=== PATIENT | female | born 1930 | race Caucasian/White ===

== ENCOUNTER 2016-09-08 14:27 | Inpatient (IN) | payer MEDICARE ==
--- NOTE | ~2016-09-08 | CN ---
Consultation Report [facility] [address] [place]. [address] NAME: NAHID LOWE : 32 STATUS : ADM Christina PAT#: [id number] AGE: 86 ADM/REG DATE : 09/08/16 MR#: [id number] REPORT SERV DATE: 09/10/16 DICTATED BY: AMRIT STODDARD IV DATE: 09/10/16 REPORT STATUS : Draft TRANSCRIBED BY: SHARONA DATE: 09/10/16 PULMONARY CONSULTATION. DATE OF CONSULTATION: 09/10/2016 REASON FOR REQUEST: COPD exacerbation and bronchitis. HISTORY OF PRESENT ILLNESS: History was obtained from the patient and the records. Ms. Lowe is an 86-year-old female with a history of coronary artery disease, hypertension, elevated cholesterol, peripheral arterial disease, previous tobacco use, who is admitted with cough, weakness, dizziness, atrial fibrillation with bradycardia. The patient was in her normal state of health until about a week ago when she developed dizziness and then a cough that was predominantly dry, though occasionally productive of scant white phlegm. She denies any fevers, chills, sweats, hemoptysis, or wheezing. She was not previously on supplemental oxygen on bronchodilator medications. She took an over- the-counter cough medication and noted progressive weakness with decreased appetite over the ensuing days. She finally sought evaluation in a walk-in clinic, where she was given a diagnosis of bronchitis and given Levaquin. She immediately developed diarrhea with progressive weakness for which she was brought to [facility] and admitted. She was found to be bradycardic in atrial fibrillation, which has subsequently converted. She feels better with less cough and shortness of breath, still requiring a significant amount of oxygen. The patient reportedly was told by her previous that she snored. She is unaware of apneic episodes. She allows herself eight to nine hours of sleep every evening. Sleep is initially restorative, however, she complains of significant sedentary hypersomnolence. PULMONARY HISTORY: Remarkable for no history of childhood asthma or known adult obstructive lung disease. She did have pneumonia in the past. She smoked for 55 years a half a pack a day. She quit in 2006. 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 She refuses seasonal influenza vaccinations though, has received the Pneumovax. She has never received the Prevnar-13 vaccination. PAST MEDICAL HISTORY: 1. Coronary artery disease. 2. Hypertension. 3. Elevated cholesterol. 4. Peripheral arterial disease. 5. Previous tobacco use. SURGERIES: 1. Appendectomy. 2. Cholecystectomy. 3. Coronary artery bypass grafting. 4. Nonoperative healing of a left humeral fracture. Consultation Report [facility] [address] [place]. [address] NAME: NAHID LOWE : 32 STATUS : ADM Christina PAT#: [id number] AGE: 86 ADM/REG DATE : 09/08/16 MR#: [id number] REPORT SERV DATE: 09/10/16 DICTATED BY: AMRIT STODDARD IV DATE: 09/10/16 REPORT STATUS : Draft TRANSCRIBED BY: SHARONA DATE: 09/10/16 ALLERGIES: SHE REPORTEDLY HAS SWELLING FROM PENICILLIN AND IS INTOLERANT OF CODEINE. CURRENT MEDICATIONS: This patient is on aspirin 81 mg daily, heparin drip, Betapace 40 mg twice a day, Caltrate 60 mg at bedtime, Carafate 1 g before breakfast and supper, Cozaar 50 mg daily, hydrochlorothiazide 6.25 mg daily, Dulera two puffs twice a day, DuoNebs every four hours while awake, Imdur 30 mg daily, Levaquin 750 mg daily, digoxin 0.125 mg daily, magnesium oxide 800 mg q.8 hours, Norvasc 10 mg daily, level 2 insulin sliding scale, potassium 20 mEq daily, Pravachol 40 mg at bedtime, Protonix 40 mg daily, Solu-Medrol 60 mg three times a day, and vitamin D daily. SOCIAL HISTORY: Remarkable for the previous tobacco use as above. There is no alcohol or illicit drug use. She is , has one adopted child. FAMILY HISTORY: Remarkable for all of her siblings with coronary artery disease. She is unaware of other family members since she is adopted. REVIEW OF SYSTEMS: 12 systems reviewed, pertinent positives as noted above. PHYSICAL EXAMINATION: GENERAL: This is a very pleasant, obese, elderly female, in no current distress. She did not cough throughout the interview and exam. VITAL SIGNS: Temperature is 98.2, pulse is 64, respiratory rate is 22, saturation 94% on 3 L via nasal cannula, blood pressure 132/57. HEENT: Patient is normocephalic, atraumatic. Extraocular movements are intact. Pupils react to light. Sclerae and conjunctivae normal. She has a nasal cannula in place. She has a Mallampati III airway with narrowing of the posterior pharyngeal space. NECK: She has a right carotid endarterectomy scar. There is no palpable lymphadenopathy or thyromegaly. CHEST: The patient has symmetrically decreased breath sounds with a prolonged expiratory phase. There are some dry bibasilar inspiratory crackles. There are scattered expiratory rhonchi. No true wheezes are noted. She has a sternotomy scar. CARDIOVASCULAR: Jugular venous pulsations difficult to elicit. She has a left carotid bruit. There is a distant regular S1, S2 with no clear murmur or S3. Peripheral pulses are diminished. ABDOMEN: Surgical scars noted. Obese, soft, nontender. There are hypoactive bowel sounds. There is no palpable hepatosplenomegaly or masses. EXTREMITIES: Demonstrate no cyanosis, clubbing, edema, or palpable cords. NEUROLOGIC: The patient is able to follow commands. Strength is 5-/5 and sensation intact to light touch. LABORATORY DATA: Chest x-ray demonstrates rotated film. There is no acute pulmonary disease. There is postsurgical changes consistent of the coronary bypass grafting. Chemistry: Sodium is 133, potassium 3.5, chloride 90, bicarb 31, BUN 26, creatinine 0.99, Consultation Report [address] [place]. [address] NAME: NAHID LOWE : 32 STATUS : ADM Christina PAT#: [id number] AGE: 86 ADM/REG DATE : 09/08/16 MR#: [id number] REPORT SERV DATE: 09/10/16 DICTATED BY: AMRIT STODDARD IV DATE: 09/10/16 REPORT STATUS : Draft TRANSCRIBED BY: MODL DATE: 09/10/16 glucose of 169, magnesium is 1.6, and phosphorus is 4. CBC: Hemoglobin 12.9, hematocrit 37.5, platelet count was 237,000, white blood cells 9.2. The PTT is 99.4. ASSESSMENT AND PLAN: 1. Respiratory. The patient probably has a component of underlying chronic obstructive pulmonary disease with this representing an exacerbation. The patient has clinically improved on the current medications. I will restart the Spiriva. I will continue the Dulera. DuoNebs will be changed to albuterol four times a day and q.2 hours as needed. Change steroids to prednisone tomorrow. The patient has clinical obstructive sleep apnea, which is important based with her cardiovascular history. Overnight oximetry will be obtained prior to the patient going home. Oxygen will be titrated to maintain saturations in the 90% to 94% range. 2. Renal. We will replace the patient's magnesium and potassium. Check tomorrow. 3. Hematologic. We will continue heparin drip per Cardiology. 4. Infectious disease. The patient will complete the Levaquin, did have five doses; Prevnar-13 at the time of discharge. 5. Endocrinologic. We will continue the insulin coverage while on the steroids. Thank you for consulting us. We will follow up the patient with you. NM/MODL rit Stoddard IV, M.D. / [id number] CC: Zain Griffith Jr, MD Stanley Ireland, M.D.
--- NOTE | ~2016-09-08 | HP ---
History And Physical [id number] [place]. [address] NAME: NAHID LOWE : 32 STATUS : ADM Christina PAT#: [id number] AGE: 86 ADM/REG DATE : 09/08/16 MR#: [id number] REPORT SERV DATE: 09/09/16 DICTATED BY: CRISTIN ALBERTO DATE: 09/08/16 REPORT STATUS : Draft TRANSCRIBED BY: MODL DATE: 09/08/16 DATE OF ADMISSION: 09/08/2016 REASON FOR ADMISSION: Shortness of breath and dizziness. HISTORY OF PRESENT ILLNESS: An 86-year-old female with known history of CAD with 4 vessel bypass done by Dr. Dias several years ago; history of PAD with a right carotid endarterectomy, hypertension; hyperlipidemia; history of smoking, at least 45-pack years, no longer smokes though; hypothyroidism; clinical COPD, on no inhalers apparently; appendectomy; cholecystectomy; some humeral fracture that did not require operative management in the past, just a sling. Comes in with about a week episode of progressive dizziness, nonproductive cough, and mild shortness of breath. Went to walk-in clinic, apparently got Levaquin. No fevers, no chills. Positive nausea. No vomiting. Positive diarrhea, only one episode. No chest pain. No chest pressure. Positive shortness of breath. PAST MEDICAL HISTORY: See above. PAST SURGIAL HISTORY: See above. ALLERGIES: SUPPOSEDLY PENICILLIN, SWELLING. CODEINE MAKES SICK TO "STOMACH," PROBABLY DRUG INTOLERANCE. FAMILY HISTORY: Did have a brother who is biological with early CAD. Otherwise, she was adopted. HOME MEDICATIONS: See MAR, continue what is relevant. SOCIAL HISTORY: Forty-five pack year history of smoking. No alcohol. No drug use. No current smoking. REVIEW OF SYSTEMS: Done, see HPI. Otherwise, negative. OBJECTIVE: VITALS SIGNS: 165/112; 98.6 temp; 53 pulse, now she is like 48; 24 respiration, now 18; and 96% on 2 L, now 97% on 2 L. GENERAL: In no acute distress. HEENT: PERRLA. No scleral icterus. CARDIOVASCULAR: Bradycardic and irregular. RESPIRATORY: Bibasilar expiratory wheezes and crackles. ABDOMEN: Nontender, nondistended. Positive bowel sounds. EXTREMITIES: No edema. No ecchymosis. History And Physical [address] [place]. [address] NAME: NAHID LOWE : 32 STATUS : ADM Christina PAT#: [id number] AGE: 86 ADM/REG DATE : 09/08/16 MR#: [id number] REPORT SERV DATE: 09/09/16 DICTATED BY: CRISTIN ALBERTO DATE: 09/08/16 REPORT STATUS : Draft TRANSCRIBED BY: MODL DATE: 09/08/16 NEUROLOGIC: GCS 15. A and O x4/4. PSYCHIATRIC: Normal affect and mood. LABORATORY DATA: White count 4.6; hemoglobin 12.5; 173,000 platelets; 4.2 potassium, 33 bicarb; 1.01 creatinine; 24 BUN, 133 sodium, INR 1.1, and mag 1.8. Chest x-ray, bilateral alveolar infiltration. EKG, appears to have either coarse atrial fibrillation or normal sinus rhythm with PACs, she will get a repeat regarding significant artifact. No ischemic ST-T changes on EKG. ASSESSMENT: We will go ahead and admit this patient for observation. Will have 1. Systemic inflammatory response syndrome given respiratory rate and heart rate occasionally got tachycardia but now is bradycardic. 2. Bradycardia with dizziness. 3. Acute hypoxic respiratory failure. 4. History of hypertension, accelerated. 5. History of coronary artery disease and periphery artery disease. PLAN: We will go ahead and admit this patient. Will get carotid, bilateral ultrasound, and echo given this coarse atrial fibrillation and inappropriate bradycardia. She is on carvedilol, will need to stop that, rather do Imdur and p.r.n. hydralazine. Get a BNP; if more than 100, diurese the patient. We will also go ahead and place her on Spiriva, Dulera, Solu-Medrol, Levaquin, and Lipitor empirically. The patient was noted to have been 85% on room air at the walk-in clinic. Get influenza check as well. She has never had an influenza vaccine. See rest of my orders. All questions were answered, it took well over 30 minutes to do. WST/DWAYNEL Cristin Alberto DO / [id number] CC: MD Federico Pires M.D.
--- NOTE | ~2016-09-08 | PUL ---
[facility] [address] [place]. [address] NAME: NAHID LOWE : 32 STATUS : ADM IN [facility]#: [id number] AGE: 86 ADM/REG DATE : 09/08/16 MR#: [id number] REPORT SERV DATE: 09/12/16 DICTATED BY: AMRIT STODDARD IV BRUNO DATE: 09/12/16 REPORT STATUS : Draft TRANSCRIBED BY: MODL DATE: 09/12/16 PULMONARY FUNCTION TEST OVERNIGHT OXIMETRY Study was performed on 1 L of supplemental oxygen. Six hours and 35 minutes of data available for review. The mean oxygen saturation was 88.8%. The lowest scored saturation was 80%. The patient spent 52 minutes with oxygen saturations less than 88%. There were periods of oxygen saturation variation of sawtooth pattern, though rarely did these meet 4% variance. IMPRESSION: The study was ordered on room air, however, the patient desaturated to less than 89% immediately after oxygen removal. On 1 L of supplemental oxygen, the patient continued to have significant nocturnal hypoxemia. I would suggest increasing supplemental oxygen to 2 L/minute. There is no clear evidence for significant obstructive sleep apnea. CHANO/SHARONA rit Stoddard IV, M.D. / [id number] CC: Zain Griffith Jr, MD Stanley Ireland, M.D.
--- NOTE | ~2016-09-08 | DS ---
Discharge Summary [id number] [place]. [address] NAME: NAHID SWAN : 32 STATUS : DIS IN PAT#: [id number] AGE: 86 ADM/REG DATE : 09/08/16 MR#: [id number] REPORT SERV DATE: 09/16/16 DICTATED BY: KIRILL ESPINAL DATE: 09/15/16 REPORT STATUS : Draft TRANSCRIBED BY: MODAlin DATE: 09/15/16 ADMISSION DATE: 09/08/2016 DISCHARGE DATE: 09/15/2016 DIAGNOSES: 1. Positive troponin/stress ischemia. 2. Hypoxic respiratory failure. 3. Atrial fibrillation. 4. Upper respiratory infection, treated. 5. Left carotid artery disease. 6. History of chronic hyponatremia. FOLLOWUP: The patient should follow up with her primary care physician in one to two weeks. Also, the patient should follow up with Pulmonary in three to four weeks. Also, the patient should follow up with Vascular Surgery, Dr. Russell, for her peripheral vascular disease. CONSULTANTS: Vascular Surgery, Dr. Russell; Pulmonary, Dr. Stoddard; Cardiology with Dr. Chloe Bunn. HOSPITALISTS: Dr. Ulisses Magallanes, Dr. Zain Griffith, and Dr. Espinal. DISCHARGE MEDICATIONS: Norvasc 10 mg p.o. daily, Eliquis 5 mg p.o. b.i.d., aspirin 81 mg p.o. daily, calcium carbonate 600 mg p.o. q.h.s., cholecalciferol 1000 units p.o. q.h.s., Imdur 30 mg p.o. daily, lisinopril 1.25 mg p.o. daily, Pravachol 40 mg p.o. q.h.s., sotalol 40 mg p.o. b.i.d., Spiriva one cap inhaled daily, albuterol neb p.r.n., albuterol MDI two puffs inhaled every six hours, Breo Ellipta inhaled daily. HOSPITAL COURSE: Please see H and P dictated by Dr. Ulisses Magallanes and discharge summary from Dr. Zain Griffith for further details. This is an 86 years old female, who presented with a chief complaint of shortness of breath and dizziness. The patient has a past medical history of coronary artery disease with quadruple bypass and a history of peripheral artery disease, right carotid enterectomy, hypertension, clinical COPD but not on any inhalers per chart. She was admitted to the Hospitalist Service and initially admitted to Dr. Zain Griffith, found to have SIRS and also had some bradycardia and acute on chronic hypoxic respiratory failure. Her beta-maximiliano was held due to her bradycardia. She was seen by Cardiology and Dr. Chloe Bunn. The patient did have some elevation in troponin and atrial fibrillation. Cardiology made changes to the patient's cardiac medications and continued with sotalol at 40 mg p.o. b.i.d. and continued to withhold on the patient's Coreg. The patient had an echocardiogram as well as a stress test. Echocardiogram revealed a normal left ventricular systolic function. No ischemia on stress test. She was also seen by Pulmonary Service for her acute on chronic hypoxic respiratory failure. The patient's upper respiratory infection also was treated. The patient was tested for home oxygen and qualified. Also, she was seen by Dr. Russell, Vascular Surgery, for findings of occluded left internal carotid artery and with recommendation at this time. No intervention and to follow up as an outpatient apparently chronic. Electrolytes also were replaced. The patient also refused inpatient rehab, although it was recommended to the patient. However, Discharge Summary [address] [address] NAME: NAHID SWAN : 32 STATUS : DIS IN PAT#: [id number] AGE: 86 ADM/REG DATE : 09/08/16 MR#: [id number] REPORT SERV DATE: 09/16/16 DICTATED BY: KIRILL ESPINAL DATE: 09/15/16 REPORT STATUS : Draft TRANSCRIBED BY: SHARONA DATE: 09/15/16 the patient states that it was too expensive and the copay was unaffordable for her. Also, she refused Home Health due to extensive copay due to her insurance. The patient states she will receive assistance with family. She was discharged to home with home O2. Also, educated on management of home O2. Please refer to discharge summary from Dr. Griffith for further details. The patient's hospital course was prolonged after the patient experienced a vagovagal episode on 09/13/2016 while having a bowel movement. The patient had no recurrences. I attended care for Ms. Swan initiating on 09/14/2016, for which the patient remained stable. Please refer to further details by Dr. Griffith. AGUSTIN/SHARONA Kirill Espinal M.D. / [id number] CC: Christie Kline M.D.
--- NOTE | ~2016-09-08 | DS ---
Discharge Summary [facility] [address] [place]. [address] NAME: NAHID LOWE : 32 STATUS : ADM IN PAT#: [id number] AGE: 86 ADM/REG DATE : 09/08/16 MR#: [id number] REPORT SERV DATE: 09/14/16 DICTATED BY: JR. GRIFFITH WILLIAM JOHN DATE: 09/13/16 REPORT STATUS : Draft TRANSCRIBED BY: SHARONA DATE: 09/13/16 ADMISSION DATE: 09/08/2016 DISCHARGE DATE: 09/13/2016 DISCHARGE DIAGNOSES: Include: 1. Jyy-FE-okfvpwyel myocardial infarction versus stress ischemia. 2. Carotid stenosis. 3. Mirun-tc-tzsxcqu hypoxic respiratory failure. 4. Hypertension. 5. Chronic hyponatremia. 6. Atrial fibrillation. OPERATIONS, PROCEDURES, AND TREATMENTS: Include: 1. Stress test done 09/13, which showed no evidence of ischemia with ejection fraction estimated at 60%. 2. Chest x-ray done 09/08, which showed no acute cardiopulmonary process. 3. Carotid blood flow study done 09/09, which showed left internal carotid occlusion with collateral flow. There was no significant stenosis of the right carotid. Both vertebrals were antegrade flow. 4. Myocardial perfusion scan done 09/13, which showed ejection fraction 60% with no evidence of ischemia. 5. Echocardiogram done 09/09, which showed normal left ventricular systolic function with diastolic dysfunction. There was no evidence of aortic stenosis. No evidence of pulmonary hypertension. 6. Blood cultures x2 done 09/08 were sterile. 7. Pulmonary function study, which showed a need for nocturnal oxygen 2 L/minute. CONSULTING PHYSICIANS: Include Dr. Stoddard of Pulmonology, Dr. Bunn of Cardiology, Vascular Surgery. DISCHARGE MEDICATIONS: Norvasc 10 daily; Eliquis 5 twice a day; aspirin 162 daily; calcium carbonate 600 daily; vitamin D 1000 units daily; Imdur 30 daily; lisinopril 1.25 daily; Pravachol 40 daily; sotalol 40 b.i.d.; Spiriva one dose daily; prednisone 40 daily for two days, then 20 daily for three days, then 10 daily for three days, then none; albuterol nebulized 2.5 mg every four hours while awake; Dulera 200/5 one puff twice a day. HOSPITAL COURSE: The patient is an 86-year-old female, who presented to the emergency room on 09/08/2016 with a complaint of shortness of breath and dizziness. The patient had an extensive history including history of right carotid endarterectomy, hypertension, hyperlipidemia, history of smoking. She had one week of progressive dizziness, nonproductive cough, and shortness of breath. Please see Dr. Magallanes's admission history and physical for complete details. The patient was admitted to the hospital initially for observation. She was found to have relative bradycardia. She was not on negative chronotropes at that time. She had troponins, which were elevated up to 0.25. Cardiology was therefore consulted. The patient Discharge Summary [address] [place]. [address] NAME: NAHID LOWE : 32 STATUS : ADM IN [facility]#: [id number] AGE: 86 ADM/REG DATE : 09/08/16 MR#: [id number] REPORT SERV DATE: 09/14/16 DICTATED BY: JR. GRIFFITH WILLIAM JOHN DATE: 09/13/16 REPORT STATUS : Draft TRANSCRIBED BY: SHARONA DATE: 09/13/[address] Bunn. The patient was found to have paroxysmal atrial fibrillation and was placed on sotalol with good control. She also had an echocardiogram, which is detailed above and a stress test, which is detailed above. Her medications were changed to the above regimen, and she was felt to be stable for discharge home. She is on apixaban twice a day. Regarding the patient's hypoxic respiratory failure, Dr. Stoddard was consulted. The patient had the above-named inhaled medications added to her regimen. She had a nocturnal desaturation study, which showed evidence of a need for nocturnal oxygen. This will be written for by Dr. Stoddard. The patient had a carotid ultrasound done, which did indeed show carotid stenosis/occlusion. Vascular surgery saw the patient and felt there was no intervention at this time and recommended followup in their office. Regarding the patient's hyponatremia, she was put on a fluid restriction. I suspect this is chronic hyponatremia. The patient will be discharged home on a 1.5 L fluid restriction. Her discharge sodium was 134. DISCHARGE DIET: Will be cardiac diet with a 1.5 L fluid restriction. ACTIVITY: As tolerated. FOLLOWUP: Will include Dr. Stoddard, Dr. Bunn, Dr. Federico Restrepo, and Vascular Surgery. This discharge took 30 minutes for patient encounter, coordination of care, and documentation. WJF/MODL Zain Griffith Jr, MD / [id number] CC: Zain Griffith Jr, MD Stanley Ireland, M.D.
--- NOTE | ~2016-09-08 | CN ---
Consultation Report [facility] [address] [place]. [address] NAME: NAHID LOWE : 32 STATUS : ADM IN PAT#: [id number] AGE: 86 ADM/REG DATE : 09/08/16 MR#: [id number] REPORT SERV DATE: 09/11/16 DICTATED BY: OSCAR BUNN JR. DATE: 09/11/16 REPORT STATUS : Draft TRANSCRIBED BY: SHARONA DATE: 09/11/16 CONSULTATION DATE OF CONSULTATION: 09/09/2016 INDICATION: Chest pain, elevated troponin, elevated BNP, and arrhythmia. HISTORY OF PRESENT ILLNESS: The patient is an 86-year-old white female with history of known hypertension and history of known coronary artery disease, status post prior CAB, who had been well until recently when she presented to her primary care physician's office with dyspnea and dizziness. She was treated for an upper respiratory tract infection and released, but symptoms worsened requiring urgent evaluation and admission at [facility]. Pulse oximetry on arrival was approximately 80%. With 4 L nasal cannula, pulse oximetry improved to approximately 90%. She denies any chest pain or chest pressure, but has had some dyspnea. She denied any pedal edema and BNP was noted to be normal, but became mildly elevated after 24 hours of admission. Currently, she feels somewhat improved, but has some audible wheezing and is hypertensive. ALLERGIES: PENICILLIN AND CODEINE. MEDICATIONS: Have included carvedilol 12.5 mg b.i.d., aspirin 81 mg daily, calcium supplements, vitamin D3, pravastatin, losartan and hydrochlorothiazide 100/12.5 combination half tablet b.i.d., atorvastatin 20 mg p.o. q.h.s., tiotropium bromide, Solu-Medrol, levofloxacin, ipratropium and albuterol, Spiriva inhaler, and heparin subcu. PAST MEDICAL HISTORY: Notable for history of hypertension, obesity, venous insufficiency, history of known normal LV systolic function with diastolic dysfunction. PAST SURGICAL HISTORY: Notable for prior CAB, cholecystectomy, and appendectomy. SOCIAL HISTORY: Notable for absence of tobacco or ethanol use. FAMILY HISTORY: Notable for heart disease and hypertension. PHYSICAL EXAMINATION: VITAL SIGNS: O2 saturation on 4 L nasal cannula is 92%, temperature is 98.4, pulse is 59, now on sotalol and digoxin, blood pressure 163/68 mmHg. HEENT: Unremarkable. NECK: Supple without jugular venous distention. CARDIOVASCULAR SYSTEM: Regular rate and rhythm. S4. No S3. PMI is laterally displaced. LUNGS: Notable for significantly diminished breath sounds with profuse wheezing anteriorly and posteriorly. ABDOMEN: Soft. Normoactive bowel sounds. Obese. EXTREMITIES: Are 1+ with no pedal edema. Consultation Report [facility] [address] [place]. [address] NAME: NAHID LOWE : 32 STATUS : ADM IN [facility]#: [id number] AGE: 86 ADM/REG DATE : 09/08/16 MR#: [id number] REPORT SERV DATE: 09/11/16 DICTATED BY: OSCAR BUNN JR. DATE: 09/11/16 REPORT STATUS : Draft TRANSCRIBED BY: SHARONA DATE: 09/11/16 NEUROLOGIC: She is grossly intact. LABORATORY DATA: EKG is notable for sinus rhythm with delayed R-wave progression, nonspecific ST changes with left axis deviation, and no change when compared to prior tracings. Recent echo reviewed on admission revealed normal left ventricular systolic function with no wall motion abnormality and significant diastolic dysfunction with no change in valvular disease. Ejection fraction is estimated greater than 60%. Sodium 134, potassium is 3.7, chloride 92, BUN 20, creatinine of 0.9. Glucose 109, calcium 8.5, magnesium 1.8. H and H of 12.5 and 37, white count of 4.6, platelet count of 173,000. Troponin of 0.02, 0.11, and 0.25. BNP level 98, then 399 after treatment. Chest x-ray, cardiomegaly. No evidence of pulmonary edema. IMPRESSION: 1. An 86-year-old, white female with known epicardial coronary artery disease, known history of CAB with a period of hypoxia and subsequent demand ischemia. 2. Upper respiratory tract infection suggested with asthmatic exacerbation. 3. Secondary acute on chronic diastolic heart failure from resuscitation on admission. 4. Telemetry noted, which reveals paroxysmal atrial fibrillation with rapid ventricular rate exacerbated by hypoxemia. PLANS AND RECOMMENDATIONS: 1. Sotalol reduced from 80 to 40 mg b.i.d. 2. Digoxin reduced to 0.125 mg daily. 3. Reduce carvedilol or change to alternative beta-maximiliano therapy. 4. Nitrates. 5. We will follow along with you. Would recommend Pulmonary consultation. If oxygen needs improve, then we will recommend nuclear stress testing as ECG is not changed and echo shows no wall motion abnormality. WALI/DWAYNEL Oscar Bunn Jr., M.D. / [id number] CC: Zain Griffith Jr, MD Stanley Ireland, M.D.
--- NOTE | ~2016-09-08 | ECH ---
Echocardiogram [facility] [id number] [place]. [address] NAME: NAHID LOWE : 32 STATUS : ADM Christina PAT#: [id number] AGE: 86 ADM/REG DATE : 09/08/16 MR#: [id number] REPORT SERV DATE: 09/10/16 DICTATED BY: OSCAR BUNN JR. DATE: 09/09/16 REPORT STATUS : Draft TRANSCRIBED BY: MODL DATE: 09/09/16 INDICATIONS: Arrhythmia, bradycardia, chest pain, elevated troponin. Room number CDU 1, bed 4. REFERRING PHYSICIAN: Federico Restrepo M.D. TECH: Deann Antony is the RDCS. 2-D INTERPRETATION: M-mode and 2-dimensional echocardiography were performed. The left atrium was mildly dilated at 4.1 cm compared to an aortic root diameter of 2.7 cm. The left ventricle was normal in size measuring 4.1 cm in end diastole and 2.6 cm in end systole. Overall, there appeared to be normal left ventricular systolic function without regional wall motion abnormality with ejection fraction of approximately 63%. The aortic valve was trileaflet and sclerotic. The mitral valve appeared to be mildly sclerotic. The remaining cardiac valves appeared to be structurally normal. No obvious pericardial or pleural effusion could be seen. No intracardiac mass could be identified. The right ventricle and right atrium appeared to be of normal size and dimension. DOPPLER/COLOR FLOW: Conventional and Doppler color flow imaging were performed. Mitral inflow patterns suggest diastolic dysfunction with impaired relaxation. There was no significant mitral insufficiency. There was trace tricuspid insufficiency. A peak right ventricular systolic pressure could not be obtained. Peak gradient across the aortic valve measured 12 mmHg. There was no evidence of aortic stenosis or aortic insufficiency. Neither significant stenosis or insufficiency of the remaining cardiac valves could be visualized. CONCLUSION: NORMAL LEFT VENTRICULAR SYSTOLIC FUNCTION WITH DIASTOLIC DYSFUNCTION. AORTIC VALVE SCLEROSIS. NO EVIDENCE OF AORTIC STENOSIS. NO EVIDENCE OF PULMONARY HYPERTENSION. /SHARONA Oscar Bunn Jr., M.D. / [id number] CC: MD Federico Pires M.D.
[2016-09-08 15:26] LABS: BASOPHILS 0.7 %; BASOPHILS ABSOLUTE 0.03 10/3/uL (0.0-0.16); EOSINOPHILS 0.4 %; EOSINOPHILS ABSOLUTE 0.02 10/3/uL (0.0-0.53); HEMOGLOBIN 12.5 g/dL (12.0-16.0); IMMATURE GRANULOCYTES 0.2 %; IMMATURE GRANULOCYTES ABSOLUTE 0.01 10/3/uL (0.0-0.11); LYMPHOCYTES 39.6 %; MEAN CORPUS HGB CONC 33.8 g/dL (32.0-36.0); MEAN CORPUSCULAR HEMOGLOB 29.9 pg (26.0-34.0); MEAN CORPUSCULAR VOLUME 88.5 fL (80-100); MEAN PLATELET VOLUME 10.8 fL (9.2-13.0); MONOCYTES 16.7 %; MONOCYTES ABSOLUTE 0.76 10/3/uL (0.21-1.20); NEUTROPHILS 42.4 %; NEUTROPHILS ABSOLUTE 1.93 10/3/uL (2.02-8.40); RBC DISTRIBUTION WIDTH 14.6 % (12.0-16.0); RED CELL COUNT 4.18 10/6/uL (4.0-5.6)
[2016-09-08 15:27] LABS: ER CBC TAT 0 Hrs 09 Mins; MANUAL DIFF NO %; PLATELET COUNT 173 10/3/uL (150-400); WHITE BLOOD CELLS 4.6 10/3/uL (4.5-10.5)
[2016-09-08 15:38] LABS: INTERNATIONAL NORMAL RATI 1.1 UNITS (-)
[2016-09-08 15:39] LABS: PARTIAL THROMBO TIME 34.4 SEC (22.5-37.2)
[2016-09-08 15:40] LABS: BUN (BLOOD UREA NITROGEN) 24 MG/DL (6-23); CALCIUM, SERUM 8.5 MG/DL (8.5-10.4); CHEST PAIN PROFILE TAT 0 Hrs 22 Mins; CHLORIDE, SERUM 93 MMOL/L (96-112); CO2 (CARBON DIOXIDE) 33 MMOL/L (24-34); CREATININE 1.01 MG/DL (0.55-1.02); GFR AFRICAN AMERICAN 59 ML/MIN (>=60); GFR NON AFRICAN AMERICAN 51 ML/MIN (>=60); GLUCOSE, SERUM 109 MG/DL (60-99); POTASSIUM, SERUM 4.2 MMOL/L (3.5-5.3); SODIUM, SERUM 133 MMOL/L (135-148); TROPONIN I 0.02 NG/ML (<0.05)
[2016-09-08] MEDS ORDERED: COREG12 PO (16:24)
[2016-09-08] MEDS ORDERED: HYZAAR1 TAB PO (16:25)
[2016-09-08] MEDS ORDERED: VITAMIN D1000 UNI1 PO (16:25)
[2016-09-08] MEDS ORDERED: PRAVACHOL40 MG PO (16:25)
[2016-09-08] MEDS ORDERED: ASAB PO (16:25)
[2016-09-08] MEDS ORDERED: CALTRAT600 PO (16:26)
[2016-09-08 22:09] LABS: BASOPHILS 0.3 %; BASOPHILS ABSOLUTE 0.01 10/3/uL (0.0-0.16); EOSINOPHILS 0 %; HEMATOCRIT 39.7 % (36.0-48.0); HEMOGLOBIN 13.3 g/dL (12.0-16.0); IMMATURE GRANULOCYTES 0.3 %; IMMATURE GRANULOCYTES ABSOLUTE 0.01 10/3/uL (0.0-0.11); LYMPHOCYTES ABSOLUTE 1.11 10/3/uL (0.67-4.30); MEAN CORPUS HGB CONC 33.5 g/dL (32.0-36.0); MEAN CORPUSCULAR VOLUME 89.4 fL (80-100); MONOCYTES 1.7 %; MONOCYTES ABSOLUTE 0.06 10/3/uL (0.21-1.20); NEUTROPHILS 65.7 %; NEUTROPHILS ABSOLUTE 2.28 10/3/uL (2.02-8.40); PLATELET COUNT 122 10/3/uL (150-400); RBC DISTRIBUTION WIDTH 14.6 % (12.0-16.0); RED CELL COUNT 4.44 10/6/uL (4.0-5.6); WHITE BLOOD CELLS 3.5 10/3/uL (4.5-10.5)
[2016-09-08 22:12] LABS: MANUAL DIFF NO %
[2016-09-08 22:38] LABS: A/G RATIO 0.9 (0.7-1.9); ALBUMIN 3.7 G/DL (3.5-5.0); ALKALINE PHOSPHATASE 71 U/L (45-117); BUN (BLOOD UREA NITROGEN) 22 MG/DL (6-23); CHLORIDE, SERUM 94 MMOL/L (96-112); CO2 (CARBON DIOXIDE) 33 MMOL/L (24-34); CREATININE 0.94 MG/DL (0.55-1.02); GFR AFRICAN AMERICAN 65 ML/MIN (>=60); GFR NON AFRICAN AMERICAN 56 ML/MIN (>=60); GLUCOSE, SERUM 151 MG/DL (60-99); PHOSPHORUS, SERUM 2.8 MG/DL (2.5-4.5); POTASSIUM, SERUM 4.6 MMOL/L (3.5-5.3); SGOT(AST) 35 U/L (5-40); SGPT(ALT) 28 U/L (5-65); SODIUM, SERUM 134 MMOL/L (135-148); TOTAL BILIRUBIN 0.4 MG/DL (0-1.2); TOTAL PROTEIN 7.7 G/DL (6.0-8.5)
[2016-09-08 22:40] LABS: TROPONIN I 0.11 NG/ML (<0.05)
[2016-09-08 22:41] LABS: B NATRIURETIC PEPTIDE (BNP) 164.7 PG/ML (< 100.0)
[2016-09-08 22:44] LABS: PLATELET ESTIMATE SLT DEC (ADEQUATE)
[2016-09-08 22:46] LABS: PROCALCITONIN <0.05 ng/mL (<0.5)
[2016-09-09 05:03] LABS: BASOPHILS 0.3 %; BASOPHILS ABSOLUTE 0.01 10/3/uL (0.0-0.16); EOSINOPHILS 0 %; HEMATOCRIT 40.5 % (36.0-48.0); HEMOGLOBIN 13.8 g/dL (12.0-16.0); IMMATURE GRANULOCYTES 0.3 %; IMMATURE GRANULOCYTES ABSOLUTE 0.01 10/3/uL (0.0-0.11); LYMPHOCYTES ABSOLUTE 1.21 10/3/uL (0.67-4.30); MANUAL DIFF NO %; MEAN CORPUS HGB CONC 34.1 g/dL (32.0-36.0); MEAN CORPUSCULAR HEMOGLOB 29.9 pg (26.0-34.0); MEAN CORPUSCULAR VOLUME 87.7 fL (80-100); MEAN PLATELET VOLUME 10.4 fL (9.2-13.0); MONOCYTES 3.5 %; MONOCYTES ABSOLUTE 0.11 10/3/uL (0.21-1.20); NEUTROPHILS 56.9 %; NEUTROPHILS ABSOLUTE 1.76 10/3/uL (2.02-8.40); PLATELET COUNT 217 10/3/uL (150-400); RBC DISTRIBUTION WIDTH 14.5 % (12.0-16.0); RED CELL COUNT 4.62 10/6/uL (4.0-5.6); WHITE BLOOD CELLS 3.1 10/3/uL (4.5-10.5)
[2016-09-09 05:24] LABS: BUN (BLOOD UREA NITROGEN) 20 MG/DL (6-23); CALCIUM, SERUM 9.4 MG/DL (8.5-10.4); CHLORIDE, SERUM 92 MMOL/L (96-112); CO2 (CARBON DIOXIDE) 34 MMOL/L (24-34); CPK 86 U/L (0-200); CREATININE 0.92 MG/DL (0.55-1.02); GFR AFRICAN AMERICAN 66 ML/MIN (>=60); GFR NON AFRICAN AMERICAN 57 ML/MIN (>=60); GLUCOSE, SERUM 162 MG/DL (60-99); PHOSPHORUS, SERUM 2.8 MG/DL (2.5-4.5); POTASSIUM, SERUM 3.7 MMOL/L (3.5-5.3); SODIUM, SERUM 134 MMOL/L (135-148)
[2016-09-09 05:25] LABS: CK-MB 2.2 NG/ML
[2016-09-09 05:26] LABS: TROPONIN I 0.25 NG/ML (<0.05)
[2016-09-09 10:19] LABS: GLYCOHEMOGLOBIN (HbA1c) 5.7 % (4.7-6.1)
[2016-09-09 15:55] LABS: CPK 87 U/L (0-200)
[2016-09-09 15:56] LABS: CK-MB 2.8 NG/ML; TROPONIN I 0.56 NG/ML (<0.05)
[2016-09-09 18:02] LABS: CPK 90 U/L (0-200)
[2016-09-09 18:03] LABS: CK-MB 2.8 NG/ML
[2016-09-10 04:23] LABS: BASOPHILS 0.1 %; BASOPHILS ABSOLUTE 0.01 10/3/uL (0.0-0.16); EOSINOPHILS 0 %; HEMATOCRIT 37.5 % (36.0-48.0); HEMOGLOBIN 12.9 g/dL (12.0-16.0); IMMATURE GRANULOCYTES 0.2 %; IMMATURE GRANULOCYTES ABSOLUTE 0.02 10/3/uL (0.0-0.11); LYMPHOCYTES 20.3 %; LYMPHOCYTES ABSOLUTE 1.88 10/3/uL (0.67-4.30); MEAN CORPUS HGB CONC 34.4 g/dL (32.0-36.0); MEAN CORPUSCULAR HEMOGLOB 29.9 pg (26.0-34.0); MEAN CORPUSCULAR VOLUME 86.8 fL (80-100); MEAN PLATELET VOLUME 10.8 fL (9.2-13.0); MONOCYTES 6.3 %; MONOCYTES ABSOLUTE 0.58 10/3/uL (0.21-1.20); NEUTROPHILS 73.1 %; NEUTROPHILS ABSOLUTE 6.75 10/3/uL (2.02-8.40); PLATELET COUNT 237 10/3/uL (150-400); RBC DISTRIBUTION WIDTH 14.4 % (12.0-16.0); RED CELL COUNT 4.32 10/6/uL (4.0-5.6)
[2016-09-10 04:24] LABS: MANUAL DIFF NO %; WHITE BLOOD CELLS 9.2 10/3/uL (4.5-10.5)
[2016-09-10 04:42] LABS: CALCIUM, SERUM 9.8 MG/DL (8.5-10.4); CHLORIDE, SERUM 90 MMOL/L (96-112); CO2 (CARBON DIOXIDE) 31 MMOL/L (24-34); CREATININE 0.99 MG/DL (0.55-1.02); GFR AFRICAN AMERICAN 61 ML/MIN (>=60); GFR NON AFRICAN AMERICAN 52 ML/MIN (>=60); GLUCOSE, SERUM 169 MG/DL (60-99); POTASSIUM, SERUM 3.5 MMOL/L (3.5-5.3); SODIUM, SERUM 133 MMOL/L (135-148)
[2016-09-10 04:45] LABS: BUN (BLOOD UREA NITROGEN) 26 MG/DL (6-23); TROPONIN I 0.33 NG/ML (<0.05)
[2016-09-11 05:38] LABS: BASOPHILS 0.1 %; BASOPHILS ABSOLUTE 0.01 10/3/uL (0.0-0.16); EOSINOPHILS 0 %; HEMATOCRIT 37.7 % (36.0-48.0); IMMATURE GRANULOCYTES 0.3 %; IMMATURE GRANULOCYTES ABSOLUTE 0.04 10/3/uL (0.0-0.11); LYMPHOCYTES 14.8 %; LYMPHOCYTES ABSOLUTE 1.94 10/3/uL (0.67-4.30); MEAN CORPUS HGB CONC 34.5 g/dL (32.0-36.0); MEAN CORPUSCULAR HEMOGLOB 30.1 pg (26.0-34.0); MEAN CORPUSCULAR VOLUME 87.3 fL (80-100); MEAN PLATELET VOLUME 11.4 fL (9.2-13.0); MONOCYTES 7.4 %; MONOCYTES ABSOLUTE 0.97 10/3/uL (0.21-1.20); NEUTROPHILS 77.4 %; NEUTROPHILS ABSOLUTE 10.17 10/3/uL (2.02-8.40); PLATELET COUNT 247 10/3/uL (150-400); RBC DISTRIBUTION WIDTH 14.6 % (12.0-16.0); RED CELL COUNT 4.32 10/6/uL (4.0-5.6)
[2016-09-11 05:39] LABS: MANUAL DIFF NO %; WHITE BLOOD CELLS 13.1 10/3/uL (4.5-10.5)
[2016-09-11 05:53] LABS: BUN (BLOOD UREA NITROGEN) 26 MG/DL (6-23); CHLORIDE, SERUM 90 MMOL/L (96-112); CO2 (CARBON DIOXIDE) 31 MMOL/L (24-34); CREATININE 0.87 MG/DL (0.55-1.02); GFR AFRICAN AMERICAN 71 ML/MIN (>=60); GFR NON AFRICAN AMERICAN 61 ML/MIN (>=60); SODIUM, SERUM 131 MMOL/L (135-148)
[2016-09-11 05:54] LABS: GLUCOSE, SERUM 108 MG/DL (60-99); PHOSPHORUS, SERUM 2.5 MG/DL (2.5-4.5); POTASSIUM, SERUM 4.5 MMOL/L (3.5-5.3)
[2016-09-12 08:23] LABS: BASOPHILS 0.1 %; BASOPHILS ABSOLUTE 0.01 10/3/uL (0.0-0.16); EOSINOPHILS 0 %; HEMATOCRIT 38.1 % (36.0-48.0); HEMOGLOBIN 12.9 g/dL (12.0-16.0); IMMATURE GRANULOCYTES 0.3 %; IMMATURE GRANULOCYTES ABSOLUTE 0.04 10/3/uL (0.0-0.11); LYMPHOCYTES 15.5 %; LYMPHOCYTES ABSOLUTE 1.97 10/3/uL (0.67-4.30); MEAN CORPUS HGB CONC 33.9 g/dL (32.0-36.0); MEAN CORPUSCULAR HEMOGLOB 29.5 pg (26.0-34.0); MONOCYTES ABSOLUTE 1.65 10/3/uL (0.21-1.20); NEUTROPHILS 71.1 %; NEUTROPHILS ABSOLUTE 9.04 10/3/uL (2.02-8.40); PLATELET COUNT 239 10/3/uL (150-400); RBC DISTRIBUTION WIDTH 14.8 % (12.0-16.0); RED CELL COUNT 4.38 10/6/uL (4.0-5.6); WHITE BLOOD CELLS 12.7 10/3/uL (4.5-10.5)
[2016-09-12 08:24] LABS: MANUAL DIFF NO %
[2016-09-12 08:32] LABS: BUN (BLOOD UREA NITROGEN) 23 MG/DL (6-23); CALCIUM, SERUM 8.8 MG/DL (8.5-10.4); CHLORIDE, SERUM 95 MMOL/L (96-112); CO2 (CARBON DIOXIDE) 32 MMOL/L (24-34); CREATININE 0.82 MG/DL (0.55-1.02); GFR AFRICAN AMERICAN 76 ML/MIN (>=60); GFR NON AFRICAN AMERICAN 66 ML/MIN (>=60); GLUCOSE, SERUM 115 MG/DL (60-99); POTASSIUM, SERUM 3.8 MMOL/L (3.5-5.3); SODIUM, SERUM 134 MMOL/L (135-148)
[2016-09-13 05:12] LABS: BUN (BLOOD UREA NITROGEN) 20 MG/DL (6-23); CALCIUM, SERUM 8.7 MG/DL (8.5-10.4); CHLORIDE, SERUM 96 MMOL/L (96-112); CO2 (CARBON DIOXIDE) 30 MMOL/L (24-34); GFR AFRICAN AMERICAN 92 ML/MIN (>=60); GFR NON AFRICAN AMERICAN 80 ML/MIN (>=60); GLUCOSE, SERUM 113 MG/DL (60-99); POTASSIUM, SERUM 3.9 MMOL/L (3.5-5.3); SODIUM, SERUM 134 MMOL/L (135-148)
[2016-09-13 05:14] LABS: BASOPHILS 0.1 %; BASOPHILS ABSOLUTE 0.01 10/3/uL (0.0-0.16); EOSINOPHILS 0.1 %; EOSINOPHILS ABSOLUTE 0.01 10/3/uL (0.0-0.53); HEMATOCRIT 38.9 % (36.0-48.0); HEMOGLOBIN 12.9 g/dL (12.0-16.0); IMMATURE GRANULOCYTES 0.6 %; IMMATURE GRANULOCYTES ABSOLUTE 0.07 10/3/uL (0.0-0.11); LYMPHOCYTES 21.9 %; LYMPHOCYTES ABSOLUTE 2.73 10/3/uL (0.67-4.30); MEAN CORPUS HGB CONC 33.2 g/dL (32.0-36.0); MEAN CORPUSCULAR HEMOGLOB 29.3 pg (26.0-34.0); MEAN CORPUSCULAR VOLUME 88.2 fL (80-100); MEAN PLATELET VOLUME 11.4 fL (9.2-13.0); MONOCYTES ABSOLUTE 1.24 10/3/uL (0.21-1.20); NEUTROPHILS 67.3 %; NEUTROPHILS ABSOLUTE 8.39 10/3/uL (2.02-8.40); PLATELET COUNT 233 10/3/uL (150-400); RBC DISTRIBUTION WIDTH 14.7 % (12.0-16.0); RED CELL COUNT 4.41 10/6/uL (4.0-5.6); WHITE BLOOD CELLS 12.5 10/3/uL (4.5-10.5)
[2016-09-13 05:29] LABS: MANUAL DIFF NO %
[2016-09-14 06:54] LABS: BASOPHILS 0.1 %; BASOPHILS ABSOLUTE 0.01 10/3/uL (0.0-0.16); BUN (BLOOD UREA NITROGEN) 18 MG/DL (6-23); CALCIUM, SERUM 8.4 MG/DL (8.5-10.4); CHLORIDE, SERUM 99 MMOL/L (96-112); CO2 (CARBON DIOXIDE) 28 MMOL/L (24-34); CREATININE 0.61 MG/DL (0.55-1.02); EOSINOPHILS 0.1 %; EOSINOPHILS ABSOLUTE 0.01 10/3/uL (0.0-0.53); GFR AFRICAN AMERICAN 96 ML/MIN (>=60); GFR NON AFRICAN AMERICAN 83 ML/MIN (>=60); GLUCOSE, SERUM 100 MG/DL (60-99); HEMATOCRIT 36.4 % (36.0-48.0); HEMOGLOBIN 12.5 g/dL (12.0-16.0); IMMATURE GRANULOCYTES 0.6 %; IMMATURE GRANULOCYTES ABSOLUTE 0.07 10/3/uL (0.0-0.11); LYMPHOCYTES 18.5 %; LYMPHOCYTES ABSOLUTE 2.07 10/3/uL (0.67-4.30); MEAN CORPUS HGB CONC 34.3 g/dL (32.0-36.0); MEAN CORPUSCULAR HEMOGLOB 29.7 pg (26.0-34.0); MEAN CORPUSCULAR VOLUME 86.5 fL (80-100); MEAN PLATELET VOLUME 11.6 fL (9.2-13.0); MONOCYTES 8.3 %; MONOCYTES ABSOLUTE 0.93 10/3/uL (0.21-1.20); NEUTROPHILS 72.4 %; NEUTROPHILS ABSOLUTE 8.08 10/3/uL (2.02-8.40); PLATELET COUNT 235 10/3/uL (150-400); POTASSIUM, SERUM 4.2 MMOL/L (3.5-5.3); RBC DISTRIBUTION WIDTH 14.6 % (12.0-16.0); RED CELL COUNT 4.21 10/6/uL (4.0-5.6); SODIUM, SERUM 135 MMOL/L (135-148); WHITE BLOOD CELLS 11.2 10/3/uL (4.5-10.5)
[2016-09-14 06:59] LABS: MANUAL DIFF NO %
[2016-09-15] MEDS ORDERED: ASAB PO (13:13)
[2016-09-15] MEDS ORDERED: NORV10 PO (13:13)
[2016-09-15] MEDS ORDERED: BETAPACE80 PO (13:15)
[2016-09-15] MEDS ORDERED: PRIN2.5 PO (13:16)
[2016-09-15] MEDS ORDERED: ELIQUIS 5 MG TAB5 MG PO (13:16)
[2016-09-15] MEDS ORDERED: IMDUR30 PO (13:17)
[2016-09-15] MEDS ORDERED: SPIRIVA INH (13:18)
[2016-09-15] MEDS ORDERED: STERAPRED DS10 MG (13:18)
[2016-09-15] MEDS ORDERED: VENTOLIN HFA (13:19)
[2016-09-15] MEDS ORDERED: DULERA 200 MCG/13 GM INH (13:20)
[2016-09-15] MEDS ORDERED: BREO ELLIPTA 21 EACH INH (13:21)
== END 2016-09-15 14:23 | disposition home or self-care (01) | DRG 189 ==
LOC: ER 14:27 → CDU1 18:02 → 5NO 09-10 17:34
PROVIDERS: Emergency Medicine; Internal Medicine; Internal Medicine Cardiovascular Disease
DX: J96.21 Acute and chronic respiratory failure with hypoxia (principal); I50.33 Acute on chronic diastolic (congestive) heart failure; I24.8 Other forms of acute ischemic heart disease; E87.1 Hypo-osmolality and hyponatremia; I48.0 Paroxysmal atrial fibrillation; J06.9 Acute upper respiratory infection, unspecified; I11.0 Hypertensive heart disease with heart failure; I25.10 Atherosclerotic heart disease of native coronary artery without angina pectoris; E03.9 Hypothyroidism, unspecified; I65.22 Occlusion and stenosis of left carotid artery; Z23 Encounter for immunization; Z95.1 Presence of aortocoronary bypass graft; Z90.49 Acquired absence of other specified parts of digestive tract; Z87.891 Personal history of nicotine dependence; Z79.82 Long term (current) use of aspirin; Z79.4 Long term (current) use of insulin; Z88.0 Allergy status to penicillin; G47.33 Obstructive sleep apnea (adult) (pediatric)
CPT/HCPCS: 36600; 71010; 78452; 80048; 80053; 82330; 82550; 82553; 82803; 82947; 82962; 83036; 83735; 83880; 84100; 84132; 84145; 84295; 84443; 84484; 85014; 85025; 85610; 85730; 87040; 90670; 93005; 93017; 93880; 94640; 94762; 96374; 97110-GP; 97116-GP; 97162-GP; 97165-GO; 97530-GP; 99285; A9270-GY; A9502; C8929; G0009; J0153; J1956; J2930; Q9957